=== PATIENT | male | born 1960 | race Caucasian/White ===

== ENCOUNTER → 2021-07-20 | Outpatient (CLI) | payer OTHER ==
[2021-07-20 12:52] LABS: Appearance,Urine Clear (Clear); Bilirubin,Urine Negative (Negative); Blood,Urine Negative (Negative); Color,Urine Yellow; Glucose,Urine (UA) Negative (Negative); Ketones,Urine Negative (Negative); Leukocyte Esterase,Urine Negative (Negative); Nitrite,Urine Negative (Negative); PH, Urine 5.5 (5.0-8.0); Protein,Urine Trace (Negative); Specific Gravity,Urine 1.027 (1.001-1.035); Urobilinogen,Urine <2.0 mg/dL (<2.0)
--- NOTE | 2021-07-20 13:11 | XR ---
EXAMINATION TYPE: XR chest 2V DATE OF EXAM: 07/20/2021 COMPARISON: None HISTORY: 61-year-old male with lumbar surgery. M54.5, M54.16, M43.16, M47.817, M51.36, M51.26 TECHNIQUE: Frontal and lateral views FINDINGS: The cardiomediastinal silhouette, aorta, and pulmonary vasculature are within normal limits. Lungs an d pleural spaces are clear. IMPRESSION: No acute cardiopulmonary process.
[2021-07-20 13:25] LABS: INR 0.9 (<1.2); Partial Thromboplastin Time 23.4 sec (22.0-30.0); Prothrombin Time 9.8 sec (9.0-12.0)
[2021-07-20 18:44] LABS: HCT 42.8 % (39.6-50.0); HGB 15.1 g/dL (13.0-17.0); MCH 30.4 pg (27.0-32.0); MCHC 35.3 g/dL (32.0-37.0); MCV 86.3 fL (80.0-97.0); Mean Platelet Volume 11.1 fL (9.5-12.2); Platelet Count 245 X 10*3/uL (140-440); RBC 4.96 X 10*6/uL (4.40-5.60); RDW 11.9 % (11.5-14.5); WBC 7.35 X 10*3/uL (4.50-10.00)
[2021-07-20 20:17] LABS: African American GFR (CKD) 98.5 (60.0-200.0); Anion Gap 16.4 mmol/L (4.00-12.00); BUN/Creat Ratio 14.17 Ratio (12.00-20.00); Blood Urea Nitrogen 13.6 mg/dL (9.0-27.0); Calcium 10.9 mg/dL (8.7-10.3); Carbon Dioxide 21.7 mmol/L (21.6-31.8); Potassium 3.9 mmol/L (3.5-5.5)
== END | disposition home or self-care (01) ==
LOC: LABWHC1 12:05
PROVIDERS: ATTEND Orthopaedic Surgery Orthopaedic Surgery of the Spine
DX: M54.16 Radiculopathy, lumbar region (principal); M43.16 Spondylolisthesis, lumbar region; M47.817 Spondylosis without myelopathy or radiculopathy, lumbosacral region; M51.36 Other intervertebral disc degeneration, lumbar region; M51.26 Other intervertebral disc displacement, lumbar region; I49.8 Other specified cardiac arrhythmias; R53.1 Weakness
CPT/HCPCS: 36415; 71046; 80048; 81003; 85027; 85610; 85730; 93005

== ENCOUNTER → 2021-07-25 | Outpatient (CLI) | payer OTHER | END | disposition home or self-care (01) | LOC: LABWHC1 14:19 | PROVIDERS: ATTEND Internal Medicine | DX: E83.52 Hypercalcemia (principal) | CPT/HCPCS: 36415; 82330 ==

== ENCOUNTER 2024-03-02 08:06 | Day surgery (SDC) | payer OTHER ==
[2024-02-26 13:33] VITALS: BMI 30.8
[2024-03-02 08:46] VITALS: RESP 16; TEMP 97.2
[2024-03-02] MEDS: LACTATED RINGERS 1,000 ML IV SCH (08:50)
[2024-03-02] MEDS: IV FLUID CONTINUATION 1,000 ML IV ONE (08:50)
[2024-03-02] MEDS ORDERED: LIDOCAINE 1% INJ 10MG/ML (20 ML MDV) ONE (09:24)
[2024-03-02] MEDS ORDERED: PROPOFOL 10 MG/ML 20 ML VIAL IV ONE (09:24)
--- NOTE | 2024-03-02 09:45 | P.PCN ---
Date of Procedure: 03/02/24 Procedure(s) Performed: BRIEF HISTORY: Patient is a 63-year-old pleasant white male scheduled for an elective colonoscopy as a part of screening for colon cancer. PROCEDURE PERFORMED: Colonoscopy with biopsy. PREOPERATIVE DIAGNOSIS: Screening for colon cancer. IV sedation per Anesthesia. PROCEDURE: After informed consent was obtained, the patient, was brought into the endoscopy unit. IV sedation was administered by Anesthesia under continuous monitoring. Digital rectal examination was normal. Initially the Olympus CF-160 flexible video colonoscope was then inserted in the rectum, gradually advanced into the cecum without any difficulty. Careful examination was performed as the scope was gradually being withdrawn. Ileocecal valve and the appendiceal orifice were visualized and appeared normal. Prep was excellent. Mucosa of the cecum, ascending colon, transverse colon, appeared normal. The descending colon there was a 4 mm polyp that was removed by cold biopsy. In the sigmoid colon there was a 5 mm polyp that was removed by cold biopsy. Rest of the descending colon, sigmoid colon, and rectum appeared normal. Retroflexion was performed in the rectum and no lesions were seen. The patient tolerated the procedure well. IMPRESSION: 4 mm descending colon polyp status post cold biopsy 5 mm sigmoid colon polyp status post cold biopsy Rest of the colon appeared normal RECOMMENDATIONS: Findings of this examination were discussed with the patient as well as his family. He was advised to follow-up with the biopsy results. If the biopsy reveals adenoma he can have repeat colonoscopy in 5 years
[2024-03-02 10:13] VITALS: BP 134/74; PULSE 73
== END 2024-03-02 10:19 | disposition home or self-care (01) ==
LOC: ORWHC2ENDO 08:06
PROVIDERS: ATTEND Internal Medicine Gastroenterology
DX: Z12.11 Encounter for screening for malignant neoplasm of colon (principal); D12.5 Benign neoplasm of sigmoid colon; I10 Essential (primary) hypertension; E78.5 Hyperlipidemia, unspecified; G47.33 Obstructive sleep apnea (adult) (pediatric); Z87.442 Personal history of urinary calculi; Z79.899 Other long term (current) drug therapy; Z98.890 Other specified postprocedural states
CPT/HCPCS: 88305; 45380; J2001; J2704

== ENCOUNTER → 2024-05-04 | Outpatient (CLI) | payer OTHER ==
--- NOTE | 2024-05-04 08:18 | US ---
EXAMINATION TYPE: US carotid duplex BILAT DATE OF EXAM: 05/04/2024 COMPARISON: NONE CLINICAL INDICATION: Male, 63 years old with history of I65.23 CAROTID STENOSIS; stenosis TECHNIQUE: Carotid duplex ultrasound examination. Indirect Doppler criteria was utilized. FINDINGS: EXAM MEASUREMENTS: RIGHT: Peak Systolic Velocity (PSV) cm/sec ----- Right CCA: 67.7 ----- Right ICA: 93.9 ----- Right ECA: 96.8 ICA/CCA ratio: 1.4 RIGHT: End Diastole cm/sec ----- Right CCA: 16.9 ----- Right ICA: 28.5 ----- Right ECA: 11 LEFT: Peak Systolic Velocity (PSV) cm/sec ----- Left CCA: 82.3 ----- Left ICA: 98.2 ----- Left ECA: 136 ICA/CCA ratio: 1.2 LEFT: End Diastole cm/sec ----- Left CCA: 18.3 ----- Left ICA: 29.9 ----- Left ECA: 12.5 VERTEBRALS (direction of flow): Right Vertebral: Antegrade Left Vertebral: Antegrade Rhythm: Normal [employer] NOTES: No significant stenosis seen IMPRESSION: Less than 50% stenosis of the bilateral carotid bifurcations. Criteria for Assigning % of Stenosis / Diameter reduction (Estimation based on the indirect measurements of the internal carotid artery velocities (ICA PSV). 1. Normal (no stenosis)=ICA PSV < 125 cm/s: ratio < 2.0: ICA EDV<40 cm/s. 2. Less than 50% stenosis=ICA PSV < 125 cm/s: ratio < 2.0: ICA EDV<40 cm/s. 3. 50 to 69% stenosis=ICA PSV of 125 to 230 cm/s: ration 2.0 ? 4.0: ICA EDV 40-100 cm/s. 4. Greater than 70% stenosis to near occlusion= ICA PSV > 230 cm/s: ratio > 4.0: ICA EDV > 100 cm/s. 5. Near occlusion= ICA PSV velocities may be low or undetectable: variable ratio and ICA EDV. 6. Total occlusion=unable to detect flow.
--- NOTE | 2024-05-05 10:15 | CA ---
Exercise Nuclear Stress Test Report Name: Nhan Graves Exam Date: 05/04/2024 10:02 Exam Location: [facility] Stress Ht (in): 70 Wt (lb): 200 BSA: 2.09 Ordering Phys: Lane Roy MD Referring Phys: Lane Roy MD Technologist: Gaudencio Farias Age: 63 Gender: M : 1960 Procedure CPT: Indications: I25.10 arteriosclerosis ICD-10 Codes: Patient History: HYPERCHOLESTEROLEMIA, PRIOR SMOKER Medications: CRESTOR, ZETIA, Meds past 24 hrs: Pretest Chest Pain: STRESS TEST Jose L Protocol Exercise Duration (min:sec): 05:[address] Depressions (mm): Angina Score: Benton Score: Resting HR (bpm): 74 Peak HR (bpm): 152 Resting BP (mmHg): 130 / 70 Peak BP (mmHg): 217 / 65 MPHR: 157 Target HR: 133 % MPHR: 97 METS: 7.1 Total Dose: Peak Dose: Atropine: Double Product: 59633 BP Response: Stress Termination: TARGET HR/MAX EXERTION Stress Symptoms: NO SYMPTOMS Stress Summary: ECG ANALYSIS Resting ECG: Stress ECG: CONCLUSIONS Baseline EKG revealed normal sinus rhythm without significant ST-T changes. Patient walked on a standard Jose L protocol for 5 minutes and achieved a maximal heart rate of 152 bpm which is 97% of predicted maximal. He did not have any angina. He did not have any significant arrhythmia. There were no ST segment changes to indicate ischemia. This is a negative stress test with limited exercise capacity. The nuclear scan results which are more pertinent will be reported with radiologist Dr. Racquel Lerner MD (Electronically Signed) Final Date: 05 May 2024 10:14
--- NOTE | 2024-05-05 10:29 | CA ---
Transthoracic Echo Report Name: Nhan Graves Age: 63 Gender: M : 1960 Exam Date: 05/04/2024 11:11 Exam Location: [facility] Echo Ht (in): 70 Wt (lb): 215 Ordering Physician: Lane Roy MD Attending/Referring Phys: Lane Roy MD Design Drafter Mariah Brunner RDCS Procedure CPT: Indications: I25.10 arteriosclerosis Cardiac Hx: Technical Quality: Fair Contrast 1: Total Dose (mL): Contrast 2: Total Dose (mL): MEASUREMENTS (Male / Female) Normal Values 2D ECHO LV Diastolic Diameter PLAX 5.0 cm 4.2 - 5.9 / 3.9 - 5.3 cm LV Systolic Diameter PLAX 3.3 cm IVS Diastolic Thickness 1.0 cm 0.6 - 1.0 / 0.6 - 0.9 cm LVPW Diastolic Thickness 1.1 cm 0.6 - 1.0 / 0.6 - 0.9 cm LV Relative Wall Thickness 0.4 LVOT Diameter 2.1 cm LV Diastolic Volume MOD BP 87.4 cm??? 67 - 155 / 56 - 104 cm??? LV Systolic Volume MOD BP 35.3 cm??? 22 - 58 / 19 - 49 cm??? LV Ejection Fraction MOD BP 59.6 % >= 55 % LV Cardiac Index MOD BP 1900.7 cm???/min???m??? LV Diastolic Volume MOD 4C 90.1 cm??? LV Systolic Volume MOD 4C 38.6 cm??? LV Ejection Fraction MOD 4C 57.1 % LV Cardiac Index MOD 4C 1877.1 cm???/min???m??? LV Diastolic Length 4C 7.9 cm LV Systolic Length 4C 6.5 cm LV Diastolic Volume MOD 2C 80.0 cm??? LV Systolic Volume MOD 2C 28.8 cm??? LV Ejection Fraction MOD 2C 64.0 % LV Cardiac Index MOD 2C 1866.7 cm???/min???m??? LV Diastolic Length 2C 7.4 cm LV Systolic Length 2C 5.8 cm LA Volume 65.7 cm??? 18 - 58 / 22 - 52 cm??? LA Volume Index 29.6 cm???/m??? 16 - 28 cm???/m??? Ascending Aorta Diameter 3.6 cm DOPPLER AV Peak Velocity 152.0 cm/s AV Peak Gradient 9.2 mmHg AV Mean Velocity 112.6 cm/s AV Mean Gradient 5.5 mmHg AV Velocity Time Integral 33.2 cm LVOT Peak Velocity 115.1 cm/s LVOT Peak Gradient 5.3 mmHg LVOT Velocity Time Integral 23.2 cm LVOT Stroke Volume 77.2 cm??? LVOT Stroke Volume Index 35.9 ml/m??? LVOT Cardiac Index 2814.3 cm???/min???m??? AV Area Cont Eq vti 2.3 cm??? AV Area Cont Eq pk 2.5 cm??? MV Area PHT 4.2 cm??? Mitral E Point Velocity 72.5 cm/s Mitral A Point Velocity 96.5 cm/s Mitral E to A Ratio 0.8 MV Deceleration Time 178.6 ms TR Peak Velocity 251.8 cm/s TR Peak Gradient 25.4 mmHg Right Atrial Pressure 5.0 mmHg Pulmonary Artery Systolic Pressu 30.4 mmHg Right Ventricular Systolic Press 30.4 mmHg PV Peak Velocity 112.9 cm/s PV Peak Gradient 5.1 mmHg FINDINGS Left Ventricle Left ventricular ejection fraction is estimated at 55-60 %. Left ventricular cavity size normal. Left ventricular wall thickness normal. No obvious regional wall motion abnormalities. Right Ventricle Normal right ventricular size and function. Right ventricular systolic pressure within normal limits. Right Atrium Normal right atrial size. Left Atrium Mildly increased left atrial volume. Mitral Valve Structurally normal mitral valve. No evidence for mitral valve prolapse. No mitral stenosis. Trace mitral regurgitation. Aortic Valve Trileaflet aortic valve. No aortic valve stenosis or regurgitation. Tricuspid Valve Structurally normal tricuspid valve. No tricuspid stenosis. Trace tricuspid regurgitation. Pulmonic Valve Pulmonic valve not well visualized. No pulmonic regurgitation. No pulmonic stenosis. Pericardium No pericardial effusion. Echo free space anterior to the right ventricle likely represents a fat pad. Aorta Normal size aortic root and proximal ascending aorta. CONCLUSIONS Normal left ventricular size and systolic function. Minimal mitral and tricuspid regurgitation. No significant pulmonary hypertension. No pericardial effusion. Possible fat pad Previewed by: Dr. Racquel Lerner MD (Electronically Signed) Final Date: 05 May 2024 10:29
--- NOTE | 2024-05-11 15:30 | NM ---
EXAMINATION TYPE: NM stress cardiolite complete DATE OF EXAM: 05/04/2024 COMPARISON: NONE CLINICAL INDICATION: Male, 63 years old with history of I25.10 arteriosclerosis; TECHNIQUE: After the intravenous administration of 9.4 mCi Tc 99m Sestamibi - Rest images obtained 6 7 minutes post injection. The patient exercised using a LATASHA protocol and 1 minute prior to peak e xercise was injected with 25.5 mCi Tc 99m Sestamibi - Stress images obtained 19 minutes post injectio n. FINDINGS: Targeted heart rate (133 BPM) was achieved during performance of the study (152 bpm achieved). Total exercise time 5 minutes 1 second. Review of stress and rest SPECT images demonstrates a moderate-size d perfusion defect involving the mid to apical anteroseptal wall only on rest. The finding does not p ersist on stress. This would be an keeping with attenuation artifact. No distinct reversibility is se en. Gated analysis shows normal wall motion with an estimated left ventricular ejection fraction of 64 %. TID is calculated upper limits of normal at 1.08. IMPRESSION: Prominent attenuation artifact along the anteroseptal wall. No scintigraphic evidence for inducible ischemia.
== END | disposition home or self-care (01) ==
LOC: RADUSWWP 07:29
PROVIDERS: ATTEND Internal Medicine
DX: I65.23 Occlusion and stenosis of bilateral carotid arteries (principal); R93.89 Abnormal findings on diagnostic imaging of other specified body structures; I25.10 Atherosclerotic heart disease of native coronary artery without angina pectoris; E78.00 Pure hypercholesterolemia, unspecified
CPT/HCPCS: 78452; 93017; 93306; 93880